=== PATIENT | male | born 1960 ===

== ENCOUNTER 2018-01-21 11:10 | Inpatient (IN) | payer BC ==
[2018-01-21] MEDS ORDERED: Morphine 4 MG/ML VIAL ONE (11:16)
[2018-01-21 11:34] LABS: #Basophils 0.1 thou/uL (0.0-0.2); #Eosinphils 0.2 thou/uL (0.0-0.7); #Lymphocytes 1.3 thou/uL (1.20-3.40); #Monocytes 0.9 thou/uL (0.11-0.59); #Neutrophils 8.9 thou/uL (1.40-6.50); %Basophils 0.7 % (0.0-1.0); %Eosinophils 1.4 % (0.0-10.0); %Lymphocytes 11.4 % (21.0-51.0); %Monocytes 7.7 % (0.0-10.0); %Neutrophils 78.8 % (42.0-75.0); Mean Corpuscular HGB CONC 34.8 g/dL (32.0-36.0); Mean Corpuscular Volume 97.7 fl (80.0-94.0); Mean Platelet Volume 7.5 fL (7.4-10.4); Platelet Count 274 thou/uL (130-400); RBC Distribution Width 11.4 % (11.5-14.5); Red Blood Cell (RBC) Count 4.41 mill/uL (4.70-6.10); White Blood Cell (WBC) Count 11.2 thou/uL (4.8-10.8)
[2018-01-21 11:46] LABS: INR-International Normal Ratio 1.1; PTT 31.5 SEC (22.9-36.1); Prothrombin Time 13.9 SEC (12.0-14.7)
[2018-01-21] MEDS ORDERED: Heparin 10,000 UNITS/1 ML VIAL ONE ×2 (11:48→12:11)
[2018-01-21] MEDS ORDERED: Atropine Sulfate 1 mg/10 ml Syringe ONE (11:48)
[2018-01-21] MEDS ORDERED: DOPamine 400 MG/D5W 250 ML 250 ML ONE (11:49)
[2018-01-21] MEDS ORDERED: Aggrastat 12.5 MG/250 ML 250 ML ONE (11:51)
[2018-01-21 12:01] LABS: Troponin I Less than 0.010 ng/mL (< 0.028)
[2018-01-21 12:02] LABS: ALT (SGPT) 19 U/L (8-55); AST (SGOT) 26 U/L (5-34); Albumin 3.7 g/dL (3.5-5.0); Alkaline Phosphatase 80 U/L (40-150); Anion Gap 13 mmol/L (10-20); BUN (Urea Nitrogen) 7 mg/dL (8.4-25.7); Bilirubin, Total 0.8 mg/dL (0.2-1.2); Calc. Creatinine Clearance 0 mL/min (70-130); Calcium 8.6 mg/dL (7.8-10.44); Carbon Dioxide 19 mmol/L (22-29); Chloride 110 mmol/L (98-107); Estimated GFR-MDRD Greater than 90; Globulin 1.9 g/dL (2.4-3.5); Glucose 118 mg/dL (70-105); Potassium 3.8 mmol/L (3.5-5.1); Protein, Total 5.6 g/dL (6.0-8.3); Sodium 138 mmol/L (136-145)
[2018-01-21] MEDS ORDERED: Heparin 10,000 UNITS/ 10 ML VIAL ONE (12:07)
[2018-01-21] MEDS ORDERED: Lidocaine 1% (PF) 30 ML VIAL ONE (12:11)
[2018-01-21] MEDS ORDERED: Fentanyl 100 MCG/2 ML VIAL ONE (12:31)
[2018-01-21] MEDS ORDERED: Midazolam HCl 2 mg/2 ml Vial ONE (12:32)
[2018-01-21] MEDS ORDERED: Clopidogrel Bisulfate 300 MG TAB ONE (12:53)
[2018-01-21] MEDS ORDERED: Nitroglycerin 0.4 MG TAB (25 Tab Bottle) SL PRN (13:08)
[2018-01-21] MEDS ORDERED: Morphine 4 MG/ML VIAL SLOW IVP PRN (13:08)
[2018-01-21] MEDS ORDERED: Aggrastat 12.5 MG/250 ML 250 ML IVPB SCH (13:45)
[2018-01-21] MEDS ORDERED: Iopamidol 370 76% 50 ML VIAL FS ONE (13:54)
[2018-01-21] MEDS ORDERED: Iopamidol 370 76% 100 ML VIAL ONE (13:54)
[2018-01-21 14:01] VITALS: BMI 21.3
[2018-01-21] MEDS: Sodium Chloride 0.9% 1,000 ML IV SCH (14:32)
[2018-01-21 14:33] LABS: Cardiac Risk 2.1 (Less than 4.5)
[2018-01-21] MEDS: Morphine 4 MG/ML VIAL SLOW IVP PRN ×2 (15:36→19:52)
[2018-01-21 20:06] LABS: Troponin I 7.739 ng/mL (< 0.028)
[2018-01-21] MEDS ORDERED: Acetaminophen 325 MG TAB PO PRN (21:14)
[2018-01-21] MEDS: ALPRAZolam 0.25 MG TAB PO PRN (21:22)
[2018-01-22] MEDS: Sodium Chloride 0.9% 1,000 ML IV SCH ×2 (00:34→09:57)
[2018-01-22 05:29] LABS: #Basophils 0.1 thou/uL (0.0-0.2); #Eosinphils 0.1 thou/uL (0.0-0.7); #Monocytes 0.7 thou/uL (0.11-0.59); #Neutrophils 4.8 thou/uL (1.40-6.50); %Basophils 1.2 % (0.0-1.0); %Eosinophils 1.5 % (0.0-10.0); %Lymphocytes 25.6 % (21.0-51.0); %Neutrophils 62.7 % (42.0-75.0); Hemoglobin 14.3 g/dL (14.0-18.0); Mean Corpuscular HGB CONC 34.5 g/dL (32.0-36.0); Mean Corpuscular Hemoglobin 33.9 pg (27.0-31.0); Mean Corpuscular Volume 98.4 fl (80.0-94.0); Mean Platelet Volume 7.6 fL (7.4-10.4); Platelet Count 228 thou/uL (130-400); RBC Distribution Width 11.4 % (11.5-14.5); Red Blood Cell (RBC) Count 4.23 mill/uL (4.70-6.10); White Blood Cell (WBC) Count 7.6 thou/uL (4.8-10.8)
[2018-01-22 06:00] LABS: ALT (SGPT) 17 U/L (8-55); AST (SGOT) 32 U/L (5-34); Albumin 3.3 g/dL (3.5-5.0); Alkaline Phosphatase 77 U/L (40-150); Anion Gap 8 mmol/L (10-20); BUN (Urea Nitrogen) 5 mg/dL (8.4-25.7); Bilirubin, Total 1.1 mg/dL (0.2-1.2); Calc. Creatinine Clearance 106 mL/min (70-130); Calcium 8.4 mg/dL (7.8-10.44); Carbon Dioxide 22 mmol/L (22-29); Chloride 112 mmol/L (98-107); Estimated GFR-MDRD Greater than 90; Globulin 1.6 g/dL (2.4-3.5); Glucose 84 mg/dL (70-105); Potassium 3.3 mmol/L (3.5-5.1); Protein, Total 4.9 g/dL (6.0-8.3); Sodium 139 mmol/L (136-145)
[2018-01-22] MEDS: Clopidogrel Bisulfate 75 MG TAB PO SCH (08:02)
[2018-01-22] MEDS ORDERED: Potassium Chloride 20 MEQ TAB PO SCH (10:30)
[2018-01-22] MEDS: ALPRAZolam 0.25 MG TAB PO PRN (14:18)
[2018-01-22] MEDS ORDERED: Metoprolol Tartrate 50 MG TAB PO SCH (21:00)
[2018-01-23] MEDS: Sodium Chloride 0.9% 1,000 ML IV SCH (06:07)
--- NOTE | 2018-01-23 07:57 | HP ---
HISTORY OF PRESENT ILLNESS: Brendan Walter is a 57-year-old, white male, who denies any previous cardiac problems. He is now on vacation, drinking and smoking heavily and has not taken any of his medicines for a week. He then when he woke up at a.m. this morning, he had severe substernal chest pressure associated with mild diaphoresis. This continued on and [facility] was called, who brought him directly to [facility]. PAST MEDICAL HISTORY: Hypertension and hypercholesterolemia. No history of diabetes. He states that 3 or 4 years ago, he had a stroke and was evaluated as an outpatient. This seemed to affect his speech. He states he was placed on aspirin and Plavix, blood pressure medicine, and plaque buster. MEDICATIONS: Unknown. ALLERGIES: None. SOCIAL HISTORY: Smokes 1 to 1-1/2 packs per day. He drinks a 6-pack of beer per day. Although it seems like he has been drinking a lot of rum over the last week since he has been on vacation. FAMILY HISTORY: Negative for coronary artery disease. REVIEW OF SYSTEMS: Twelve-point review of systems otherwise unremarkable. PHYSICAL EXAMINATION: VITAL SIGNS: Blood pressure 132/70, pulse of 80. HEENT: PERRL. NECK: Supple. CHEST: Clear. CARDIAC: S1, S2 normal without any S3-S4 or murmurs. Carotid upstrokes normal without bruits. ABDOMEN: Normal bowel sounds without tenderness. EXTREMITIES: Revealed no clubbing, cyanosis, or edema. NEUROLOGIC: Grossly intact. SKIN: Warm and dry. LABORATORY DATA: EKG revealed normal sinus rhythm, with [address]-segment elevation in II, III, and F along with reciprocal changes in 1 and L, V2 through V 6. Blood work is pending. IMPRESSION: 1. Acute inferior ST-elevation myocardial infarction. 2. Hypertension. 3. Probable hypercholesterolemia. 4. Smoker. 5. History of cerebrovascular accident. 6. Ethyl alcohol abuse. 7. Noncompliance with medications over the last month. PLAN: Situation was discussed with the patient. It was recommended that he undergo emergent cardiac catheterization. Risks of catheterization discussed including , myocardial infarction, CVA, transfusion, limb loss, renal loss , allergic reaction, vascular damage with operative repair, etc. We discussed stent placement, additional risk of , myocardial infarction, emergent CABG , restenosis, stent thrombosis, etc. With his noncompliance with medications, I would only place a bare metal stent. YAAKOV
[2018-01-23] MEDS: Clopidogrel Bisulfate 75 MG TAB PO SCH (08:58)
[2018-01-23 11:13] VITALS: BP 144/83; TEMP 97
--- NOTE | 2018-01-23 11:27 | OP ---
CARDIAC CATH REPORT INDICATION: Inferior STEMI. Patient was brought to the emergency room and the right groin was prepped and draped in the usual fas hion. 1% lidocaine was infiltrated. A 6-Barbadian sheath placed into the right femoral artery. Nadeem vazquez had been given 5000 units of heparin in the emergency room. A 6-Barbadian Mainor left-4 was used for left coronary arteriography. A 6-Barbadian Mainor right-4 guide catheter was inserted. A floppy coburn ce advanced into the distal right coronary artery. An exchange wire had been inadvertently pulled an d this was across the lesion that this was realized. The patient became severely bradycardic a nd the guide catheter was pulled out of the right coronary artery. Atropine 1 amp was given intraven ously and intravenous fluids were returned to flush and dopamine was started. His blood pressure and pulse returned. An additional 3000 units of heparin was given intravenously. Aggrastat was started . Emerge 3.0 x 15 mm balloon was then advanced into the area of stenosis and this was dilated. It w as clear that multiple balloons and stents would be needed and so a short floppy choice wire was inse rted into the distal right coronary and the exchange floppy was removed. Attempt was made to pass a 3.5 x 32 mm stent, however, this was not across the more proximal area. This was then removed and em erge 4.0 x 20 mm balloon was inserted and pretty much extent of the right coronary artery disea se was dilated. This was then removed in the Rebel of 3.5 x 32 mm stent and was then positioned into the distal right coronary artery and deployed, proximal and overlapping this. A Rebel 4.0 x 32 and a 4.0 x 28 were then placed. Emerge NC 4.5 x 20 mm balloon was then used to post dilate the areas. Contrast injection showed question of a dissection proximal to the stent and also appeared that the o stium was somewhat narrowed. Decision was then made to place a Rebel 4.5 x 12 mm stent from the more proximal stent into the ostium. Final result was excellent, although there is still mild narrowing in the distal right coronary artery as well as proximal right coronary artery. During the procedure, patient received Aggrastat as noted above. He also received Versed 1 mg and fentanyl 25 mg IV. He received another fentanyl 25 mg. Plavix 600 mg was also given p.o. The sheath sutured in place, pat ient was transferred to CCU. RESULTS: Coronary arteriography: 1. Left main is normal. 2. The LAD had a 20% proximal stenosis. 3. The circumflex was normal. 4. The right coronary artery was totally occluded proximally. There was also a 90% mid and a 70% di stal stenosis. INTERVENTIONAL RESULTS: Initial lesion was 10% and other areas were 90%-70%. These were essentially reduced to 0%. IMPRESSION: 1. One-vessel coronary disease (right coronary artery). 2. Successful stent placement in the right coronary artery from the distal vessel to the ostium.
--- NOTE | 2018-01-23 19:01 | DIS ---
DISCHARGE DIAGNOSES: 1. Inferior ST-elevation myocardial infarction with placement of multiple bare metal stents from the distal right coronary artery to the ostium, peak troponin I is 7.739. 2. Hypertension. 3. Smoker. 4. Hyperlipidemia. 5. History of cerebrovascular accident. 6. Noncompliance to medications over the week prior to admission. DISCHARGE MEDICATIONS: Aspirin 81 mg daily, Plavix 75 mg q.a.m., metoprolol ER 100 mg daily, nitrogl ycerin p.r.n., simvastatin 20 mg at bedtime. DISCHARGE DISPOSITION: The patient will be seen in 6 weeks with EKG, complete metabolic panel, and f asting lipid profile. HOSPITAL COURSE: Mr. Walter presented with chest discomfort and had ST-segment elevation in II, II I, and F with reciprocal downsloping ST segments in all of the leads. He went to the laborer cutting tool emerge ntly. He had a 20% proximal LAD, normal circumflex. The right coronary artery was totally occluded proximally. There was also a 90% mid lesion and a 70% distal lesion. With opening the artery, he di d become hypotensive and asystolic for 2-3 seconds. Atropine was given. 3.5 x 32, 4.0 x 32, 4 .0 x 28, and 4.5 x 12 were placed from the distal right coronary artery to the ostium. Surprisingly, he had a relatively low peak troponin I as noted above. He was ambulating in the vickers. For the week prior to admission, he did not take any of his medications. He was on aspirin and Plavi x at home for history of previous stroke. Bare metal stents were placed due to his noncompliance. Serg antunez also was on unknown cholesterol medicine at home, probably simvastatin. He thinks this is 20 mg __ ___ take it irregularly. This will be resumed. His cholesterol was 154, triglycerides 71, HDL 75, L DL 65. This was with him being fairly noncompliant with his medications. He was told on a daily basis he should never smoke again, although it is doubtful that he will quit.
[2018-01-23] MEDS ORDERED: Simvastatin 20 MG TAB PO SCH (21:00)
[2018-01-23] MEDS ORDERED: Atorvastatin Calcium 10 MG TAB PO SCH (21:00)
== END 2018-01-23 13:00 | disposition home or self-care (01) | DRG 248 ==
LOC: ERS 11:10 → SDC 11:33 → CCU 13:35 → IMCU/EMU 01-22 16:52
PROVIDERS: ADMIT Internal Medicine Cardiovascular Disease; ATTEND Internal Medicine Cardiovascular Disease
PROC: 02703GZ Dilation of Coronary Artery, One Artery with Four or More Intraluminal Devices, Percutaneous Approach (ICD-10-PCS; principal; 2018-01-21)
PROC: B2111ZZ Fluoroscopy of Multiple Coronary Arteries using Low Osmolar Contrast (ICD-10-PCS; 2018-01-21)
DX: I21.19 ST elevation (STEMI) myocardial infarction involving other coronary artery of inferior wall (principal); E78.00 Pure hypercholesterolemia, unspecified; F17.210 Nicotine dependence, cigarettes, uncomplicated; I10 Essential (primary) hypertension; F10.10 Alcohol abuse, uncomplicated; Z86.73 Personal history of transient ischemic attack (TIA), and cerebral infarction without residual deficits; Z79.82 Long term (current) use of aspirin; Z91.14 Patient's other noncompliance with medication regimen
CPT/HCPCS: 36415; 80053; 80061; 84484; 85025; 85347; 85610; 85730; 92928; 92977; 93005; 93010; 93454; 93798; 94760; 96374; 96375; 99152; 99406; C1725; C1769; C1876; C1887; J0461; J1265; J1644; J2001; J2250; J2270; J3010; J3246